=== PATIENT | female | born 1985 | race Caucasian/White ===

== ENCOUNTER 2019-05-23 17:38 | Inpatient (IN) | payer OTHER ==
[~2019-05-23] VITALS: Ht 149.9 cm; Wt 77.0 kg
[~2019-05-23 17:38] MED LIST: DICL75TA5 PO
--- NOTE | 2019-05-23 18:00 | NUR ---
Patient in room MED 313. I have received report from YORDAN MONREAL and had the opportunity to ask questions and assume patient care.
[2019-05-23 18:29] LABS: D-DIMER 0.31 MG/L FEU (0-0.50)
[2019-05-23 18:40] LABS: MAGNESIUM 1.8 MG/DL (1.5-2.4)
[2019-05-23] MEDS ORDERED: LISI10TA4 PO (18:53)
[2019-05-23] MEDS ORDERED: lisinopril 10 MG tablet PO ONE (19:20)
[2019-05-23] MEDS ORDERED: heparin 10,000 units/1 ML INJ IV ONE (19:20)
[2019-05-23] MEDS ORDERED: zolpidem 5mg tablet PO PRN (19:20)
[2019-05-23] MEDS ORDERED: LORazepam 1 MG tablet PO PRN (19:20)
--- NOTE | 2019-05-23 19:27 | NUR ---
[facility]ARA CLINICAL DATA RESEARCH AT BEDSIDE. VERBAL ORDER MEDICATIONS, REFER TO ORDERS
[2019-05-23] MEDS: heparin 25,000 UNIT/250ml bag 250 ML IV SCH (19:38)
[2019-05-23 19:39] LABS: BASOPHILS # (AUTO) 0.1 X10'3 (0-0.2); BASOPHILS % (AUTO) 1.1 % (0-1); EOSINOPHILS # (AUTO) 0.3 X10'3 (0-0.9); EOSINOPHILS % (AUTO) 2.8 % (0-6); HEMATOCRIT 52.8 % (35.0-45.0); LYMPHOCYTES # (AUTO) 3.4 X10'3 (1.1-4.8); LYMPHOCYTES % (AUTO) 33.2 % (21-51); MEAN CORPUSCULAR HEMOGLOBIN 33.9 PG (27.0-31.0); MEAN CORPUSCULAR HGB CONC 34.4 g/dL (33.0-36.5); MEAN CORPUSCULAR VOLUME 98.6 FL (78-98); MEAN PLATELET VOLUME 8.5 FL (7.4-10.4); MONOCYTES # (AUTO) 0.9 X10'3 (0-0.9); MONOCYTES % (AUTO) 9.1 % (2-12); NEUTROPHILS # (AUTO) 5.5 X10'3 (1.8-7.7); NEUTROPHILS % (AUTO) 53.8 % (42-75); PLATELET COUNT 269 X10'3 (140-440); RED BLOOD COUNT 5.35 X10'6 (4.20-5.60); RED CELL DISTRIBUTION WIDTH 14.5 % (11.5-14.5); WHITE BLOOD COUNT 10.3 X10'3 (4.5-11.0)
[2019-05-23 19:43] LABS: HEMOGLOBIN 18.2 g/dl (12.0-16.0)
[2019-05-23] MEDS ORDERED: acetaminophen 325mg tablet PO PRN (19:45)
[2019-05-23] MEDS ORDERED: ondansetron/PF 4mg/2ml inj IV PRN (19:45)
[2019-05-23] MEDS ORDERED: morphine 2 MG/ML inj. syringe IV PRN ×2 (19:45)
[2019-05-23] MEDS ORDERED: mag hydrox/Alum hydrox/simeth 30ml oral suspension PO PRN (19:45)
[2019-05-23] MEDS ORDERED: magnesium hydroxide 30ml (MOM) UD suspension PO PRN (19:45)
--- NOTE | 2019-05-23 19:48 | NUR ---
TAMARA BERNARD STATED PT CAN EAT UNTIL MIDNIGHT, NPO AFTER EXCEPT MEDICATIONS. GAVE PT APPLESAUCE AND ORANGE JUICE REQUESTED
[2019-05-23 19:50] LABS: PARTIAL THROMBOPLASTIN TIME 31 SECONDS (22-32)
[2019-05-23] MEDS ORDERED: nicotine 14mg patch - 24hr TD ONE (20:05)
[2019-05-23 20:14] LABS: HEMOGLOBIN A1C 5.1 % (4.5-6.2)
--- NOTE | 2019-05-23 20:15 | NUR ---
TAMARA BERNARD CALLED FOR VERBAL ORDERS OF STAT ECHO, ABG ON RA, AND SERUM ERYTHOPEOTIN
--- NOTE | 2019-05-23 21:30 | NUR ---
RECEIVED PT, PT STABLE A & O X4
[2019-05-23 21:41] VITALS: BP 152/103
[2019-05-23 22:00] VITALS: BP 139/83
[2019-05-23] MEDS ORDERED: metoprolol succinate 25mg (24-HOUR) SR. Tablet PO ONE (22:10)
--- NOTE | 2019-05-23 22:39 | NUR ---
Per Dr. Simons, cancel all future troponins, new medication ordered, NPO after midnight except for meds. Prepare to go to lab head tomorrow.
[2019-05-23 23:27] LABS: URINE AMPHETAMINE SCREEN NEGATIVE (Neg); URINE BARBITUATE SCREEN NEGATIVE (Neg); URINE BENZODIAZEPINES SCREEN NEGATIVE (Neg); URINE CANNABINOID SCREEN NEGATIVE (Neg); URINE COCAINE SCREEN NEGATIVE (Neg); URINE METHADONE SCREEN NEGATIVE (Neg); URINE OPIATE SCREEN POSITIVE (Neg); URINE PHENCYCLIDINE SCREEN NEGATIVE (Neg)
[2019-05-23] MEDS: normal saline 1000ml 1,000 ML IV SCH (23:37)
[2019-05-24] VITALS (13 sets, daily range): BP systolic 118–139; BP diastolic 71–91
[2019-05-24 02:54] LABS: BASOPHILS # (AUTO) 0.2 X10'3 (0-0.2); BASOPHILS % (AUTO) 1.7 % (0-1); EOSINOPHILS # (AUTO) 0.4 X10'3 (0-0.9); EOSINOPHILS % (AUTO) 4.1 % (0-6); HEMATOCRIT 49.1 % (35.0-45.0); HEMOGLOBIN 16.6 g/dl (12.0-16.0); LYMPHOCYTES # (AUTO) 3.7 X10'3 (1.1-4.8); LYMPHOCYTES % (AUTO) 38.6 % (21-51); MEAN CORPUSCULAR HEMOGLOBIN 33.9 PG (27.0-31.0); MEAN CORPUSCULAR HGB CONC 33.9 g/dL (33.0-36.5); MEAN CORPUSCULAR VOLUME 99.8 FL (78-98); MEAN PLATELET VOLUME 8.1 FL (7.4-10.4); MONOCYTES % (AUTO) 10.3 % (2-12); NEUTROPHILS # (AUTO) 4.4 X10'3 (1.8-7.7); NEUTROPHILS % (AUTO) 45.3 % (42-75); PLATELET COUNT 244 X10'3 (140-440); RED BLOOD COUNT 4.92 X10'6 (4.20-5.60); RED CELL DISTRIBUTION WIDTH 14.7 % (11.5-14.5); WHITE BLOOD COUNT 9.7 X10'3 (4.5-11.0)
[2019-05-24 03:02] LABS: ANION GAP 7 (8-16); BLOOD UREA NITROGEN 12 MG/DL (7-18); BUN/CREATININE RATIO 14.5 (6.6-38.0); CALCIUM 8.1 MG/DL (8.5-10.1); CHLORIDE 103 MMOL/L (99-107); CHOL/HDL RATIO 5.9 (0.00-4.99); CHOLESTEROL 166 MG/DL (0-200); CREATININE 0.83 MG/DL (0.40-0.90); GLUCOSE 108 MG/DL (70-104); HDL CHOLESTEROL 28 MG/DL (35-60); LDL CHOLESTEROL 116 MG/DL (50-100); POTASSIUM 3.4 MMOL/L (3.5-5.1); SODIUM 138 MMOL/L (135-145); TOTAL CARBON DIOXIDE 28.2 MMOL/L (24-32); TRIGLYCERIDES 362 MG/DL (20-135); eGFR 78 ML/MIN
--- NOTE | 2019-05-24 04:08 | NUR ---
PAGE TO RESPIRATORY: 313 PT ABY ACTIVE ORDER FOR ABGS, EXPECTED DONE IN ER AND WANTS DONE BEFORE CATH PROCEDURE. THANK YOU.
[2019-05-24] MEDS: heparin 10,000 units/1 ML INJ IV PRN ×2 (04:09→12:40)
[2019-05-24] MEDS: heparin 25,000 UNIT/250ml bag 250 ML IV SCH ×2 (04:11→12:42)
[2019-05-24 04:56] LABS: ABG BASE EXCESS -0.2 mmol/L (-2.0-3.0); ABG HCO3 25.2 mmol/L (22.0-26.0); ABG OXYGEN SATURATION 95.5 % (95-98); ABG PCO2 (T) 43.3 mmHg (35.0-45.0); ABG PH (T) 7.382 (7.350-7.450); ABG PO2 (T) 78.8 mmHg (83-108); FCOHb 0.6 % (0.5-1.5); FMetHb 0.3 % (0.3-1.12); FO2Hb 94.6 % (94-100); TOTAL HEMOGLOBIN 17.2 G/dl (12.0-16.0)
--- NOTE | 2019-05-24 06:00 | NUR ---
Problems reprioritized. Patient report given, questions answered & plan of care reviewed with Bing MONREAL.
--- NOTE | 2019-05-24 07:05 | NUR ---
Patient in room MED 313. I have received report from Sandra MONREAL and had the opportunity to ask questions and assume patient care.
[2019-05-24] MEDS ORDERED: metoprolol succinate 25mg (24-HOUR) SR. Tablet PO SCH (08:00)
[2019-05-24] MEDS: aspirin 81mg tablet.DR PO SCH (08:00)
[2019-05-24] MEDS: atorvastatin 20mg tablet PO SCH (09:22)
[2019-05-24] MEDS: lisinopril 20mg tablet PO SCH (09:25)
[2019-05-24] MEDS ORDERED: diphenhydrAMINE 25mg capsule PO ONE ×2 (10:00→10:05)
--- NOTE | 2019-05-24 11:10 | NUR ---
Patient in room MED 313. I have received report from JOCELIN Smart and had the opportunity to ask questions and assume patient care.
--- NOTE | 2019-05-24 11:23 | NUR ---
PICC NURSE PAGED FOR EXT PIV
--- NOTE | 2019-05-24 11:26 | NUR ---
page to [facility] nurse: RM 313 needs to be darted. Thank you! Ashley MONREAL [phone]
[2019-05-24] MEDS: normal saline 1000ml 1,000 ML IV SCH (11:30)
[2019-05-24] MEDS ORDERED: LIDOcaine 1% (10mg/ml)w/preservative injection 20ml MDV ONE (13:27)
[2019-05-24] MEDS ORDERED: midazolam 2 mg/2 ml injection ONE ×2 (13:27→14:09)
[2019-05-24] MEDS ORDERED: fentaNYL/PF 50MCG/1 ML 2ML syringe ONE (13:27)
[2019-05-24] MEDS ORDERED: iohexol 350MG/ML 100ml bottle IV ONE (13:28)
[2019-05-24] MEDS ORDERED: heparin 1,000 UNITS/NS 500ml 500 ML ONE (13:28)
[2019-05-24] MEDS ORDERED: iohexol 350 MG/ML 50ML vial IV ONE (13:28)
[2019-05-24] MEDS ORDERED: metoprolol tartrate 1mg/ml inj IV ONE (14:16)
[2019-05-24] MEDS ORDERED: nitroGLYCERIN-Tridil 50MG/D5W 250 ML IV ONE (14:17)
--- NOTE | 2019-05-24 14:45 | NUR ---
Patient back from [employer]. Right groin site clean dry dressing intact. No s/sx of bleeding or hematoma.
[2019-05-24] MEDS ORDERED: ondansetron/PF 4mg/2ml inj IV PRN (15:00)
[2019-05-24] MEDS ORDERED: HYDROcodone/acetaminophen 5mg/325mg tablet PO PRN (15:00)
[2019-05-24] MEDS ORDERED: OXAZEpam 15mg capsule PO PRN (15:05)
[2019-05-24] MEDS ORDERED: proCHLORperazine 10 MG/2 ml inj IV PRN (15:05)
[2019-05-24] MEDS ORDERED: normal saline 1000ml 1,000 ML IV SCH (15:25)
[2019-05-24] MEDS: HYDROcodone/acetaminophen 10/325mg tab PO PRN (15:54)
--- NOTE | 2019-05-24 17:22 | NUR ---
PAGER ID: [phone] MESSAGE: 313: ABY - need to clarify phlebotomy therapeutic order.
--- NOTE | 2019-05-24 18:00 | NUR ---
Patient in room MED 313. I have received report from Rayne MONREAL and had the opportunity to ask questions and assume patient care.
--- NOTE | 2019-05-24 18:13 | NUR ---
Problems reprioritized. Patient report given, questions answered & plan of care reviewed with JOCELIN Flores.
--- NOTE | 2019-05-24 18:41 | NUR ---
I have reviewed and agree with all interventions, assessments performed and documented by JOCELIN Mclain.
[2019-05-24] MEDS: ALPRAZolam 0.5mg tablet PO SCH (20:35)
[2019-05-24] MEDS: metoprolol succinate 25mg (24-HOUR) SR. Tablet PO SCH (20:35)
--- NOTE | 2019-05-24 23:38 | NUR ---
I have drawn 192 mls of blood off pt, the iv stopped drawing so will give it a rest and try to get the remaining 108 mls later.
[2019-05-25 02:00] VITALS: BP 117/76
[2019-05-25 05:28] LABS: BASOPHILS # (AUTO) 0.1 X10'3 (0-0.2); BASOPHILS % (AUTO) 1.3 % (0-1); EOSINOPHILS # (AUTO) 0.4 X10'3 (0-0.9); EOSINOPHILS % (AUTO) 4.9 % (0-6); HEMATOCRIT 44.8 % (35.0-45.0); HEMOGLOBIN 15.4 g/dl (12.0-16.0); LYMPHOCYTES # (AUTO) 2.7 X10'3 (1.1-4.8); LYMPHOCYTES % (AUTO) 35.9 % (21-51); MEAN CORPUSCULAR HEMOGLOBIN 34.1 PG (27.0-31.0); MEAN CORPUSCULAR HGB CONC 34.4 g/dL (33.0-36.5); MEAN CORPUSCULAR VOLUME 98.9 FL (78-98); MEAN PLATELET VOLUME 8.3 FL (7.4-10.4); MONOCYTES # (AUTO) 0.9 X10'3 (0-0.9); MONOCYTES % (AUTO) 11.5 % (2-12); NEUTROPHILS # (AUTO) 3.5 X10'3 (1.8-7.7); NEUTROPHILS % (AUTO) 46.4 % (42-75); PLATELET COUNT 224 X10'3 (140-440); RED BLOOD COUNT 4.53 X10'6 (4.20-5.60); RED CELL DISTRIBUTION WIDTH 13.8 % (11.5-14.5); WHITE BLOOD COUNT 7.5 X10'3 (4.5-11.0)
[2019-05-25 05:57] LABS: ANION GAP 8 (8-16); BLOOD UREA NITROGEN 12 MG/DL (7-18); BUN/CREATININE RATIO 19.4 (6.6-38.0); CALCIUM 8.3 MG/DL (8.5-10.1); CHLORIDE 109 MMOL/L (99-107); CREATININE 0.62 MG/DL (0.40-0.90); GLUCOSE 96 MG/DL (70-104); POTASSIUM 4.1 MMOL/L (3.5-5.1); SODIUM 143 MMOL/L (135-145); TOTAL CARBON DIOXIDE 26.1 MMOL/L (24-32); eGFR > 90 ML/MIN
--- NOTE | 2019-05-25 06:00 | NUR ---
Problems reprioritized. Patient report given, questions answered & plan of care reviewed with JASMINE MONREAL.
--- NOTE | 2019-05-25 06:00 | NUR ---
Patient in room MED 313. I have received report from Sandra MONREAL and had the opportunity to ask questions and assume patient care.
[2019-05-25 07:00] VITALS: BP 145/83
[2019-05-25] MEDS: HYDROcodone/acetaminophen 10/325mg tab PO PRN ×2 (08:32→12:47)
[2019-05-25] MEDS: ALPRAZolam 0.5mg tablet PO SCH (08:32)
[2019-05-25] MEDS: lisinopril 20mg tablet PO SCH (08:33)
[2019-05-25] MEDS: metoprolol succinate 25mg (24-HOUR) SR. Tablet PO SCH (08:33)
[2019-05-25] MEDS: aspirin 81mg tablet.DR PO SCH (08:33)
[2019-05-25] MEDS: atorvastatin 20mg tablet PO SCH (08:34)
[2019-05-25 11:00] VITALS: BP 146/99
[2019-05-25] MEDS ORDERED: METO-395 PO (11:24)
[2019-05-25] MEDS ORDERED: ASPI-1071 PO (11:24)
[2019-05-25] MEDS ORDERED: NICO-631 TD (11:24)
[2019-05-25] MEDS ORDERED: ATOR20TA66 PO (11:24)
--- NOTE | 2019-05-25 12:30 | NUR ---
The patient has remained stable VSS and she denies any pain. IV removed from R arm with cath intact, pt tolerated well. IV removed from L arm cath intact and pt tolerated well. She stated understanding to all discharge instructions. Medications faxed to her pharmacy. She was escorted via wheelchair to private vehicle without event.
== END 2019-05-25 12:30 | disposition home or self-care (01) | DRG 282 ==
LOC: EDSEX 17:39 → ER 17:39 → EEVIPCON 17:39 → MED 3N 19:45
PROVIDERS: ADMIT Hospitalist; ATTEND Hospitalist
PROC: 4A023N7 Measurement of Cardiac Sampling and Pressure, Left Heart, Percutaneous Approach (ICD-10-PCS; principal; 2019-05-24)
PROC: B2111ZZ Fluoroscopy of Multiple Coronary Arteries using Low Osmolar Contrast (ICD-10-PCS; 2019-05-24)
PROC: B2151ZZ Fluoroscopy of Left Heart using Low Osmolar Contrast (ICD-10-PCS; 2019-05-24)
PROC: B41F1ZZ Fluoroscopy of Right Lower Extremity Arteries using Low Osmolar Contrast (ICD-10-PCS; 2019-05-24)
DX: I21.4 Non-ST elevation (NSTEMI) myocardial infarction (principal); D75.1 Secondary polycythemia; E78.00 Pure hypercholesterolemia, unspecified; E78.5 Hyperlipidemia, unspecified; F17.210 Nicotine dependence, cigarettes, uncomplicated; I10 Essential (primary) hypertension; F41.9 Anxiety disorder, unspecified; G43.909 Migraine, unspecified, not intractable, without status migrainosus; M79.601 Pain in right arm; M79.602 Pain in left arm; R11.2 Nausea with vomiting, unspecified; R42 Dizziness and giddiness; Z82.49 Family history of ischemic heart disease and other diseases of the circulatory system; Z71.6 Tobacco abuse counseling
CPT/HCPCS: 36415; 36600; 76937; 80048; 80061; 80305; 82668; 82803; 83036; 83735; 83880; 84484; 85018; 85025; 85379; 85610; 85730; 87081; 93005; 93306; 93458; 96374; 99152; 99153; 99285; A4620; A6258; C1769; G0378; J1644; J2001; J2250; J2270; J3010; J3490; J7030; Q0163; Q9967

== ENCOUNTER 2019-08-16 13:43 | Outpatient (CLI) | payer OTHER, MEDICAID ==
[~2019-08-16 13:43] MED LIST changes: +ASPI-1071 PO; +ATOR20TA66 PO; -DICL75TA5 PO; +LISI10TA4 PO; +METO-395 PO
[2019-08-16 14:43] LABS: BASOPHILS # (AUTO) 0.1 X10'3 (0-0.2); BASOPHILS % (AUTO) 1.5 % (0-1); EOSINOPHILS # (AUTO) 0.6 X10'3 (0-0.9); EOSINOPHILS % (AUTO) 5.7 % (0-6); HEMATOCRIT 43.8 % (35.0-45.0); HEMOGLOBIN 15.3 g/dl (12.0-16.0); LYMPHOCYTES # (AUTO) 2.6 X10'3 (1.1-4.8); LYMPHOCYTES % (AUTO) 26.7 % (21-51); MEAN CORPUSCULAR HEMOGLOBIN 33.9 PG (27.0-31.0); MEAN CORPUSCULAR VOLUME 96.9 FL (78-98); MEAN PLATELET VOLUME 7.4 FL (7.4-10.4); MONOCYTES # (AUTO) 0.8 X10'3 (0-0.9); MONOCYTES % (AUTO) 7.8 % (2-12); NEUTROPHILS # (AUTO) 5.8 X10'3 (1.8-7.7); NEUTROPHILS % (AUTO) 58.3 % (42-75); PLATELET COUNT 320 X10'3 (140-440); RED BLOOD COUNT 4.53 X10'6 (4.20-5.60); RED CELL DISTRIBUTION WIDTH 11.8 % (11.5-14.5); WHITE BLOOD COUNT 9.9 X10'3 (4.5-11.0)
[2019-08-16 14:55] LABS: ALANINE AMINOTRANSFERASE 54 U/L (12-78); ALBUMIN 3.8 G/DL (3.4-5.0); ALBUMIN/GLOBULIN RATIO 1.1 (1.1-1.5); ALKALINE PHOSPHATASE 84 IU/L (46-116); ANION GAP 8 (8-16); ASPARTATE AMINO TRANSFERASE 30 U/L (10-37); BILIRUBIN,TOTAL 0.7 MG/DL (0.1-1.0); BLOOD UREA NITROGEN 7 MG/DL (7-18); BUN/CREATININE RATIO 11.5 (6.6-38.0); CHLORIDE 104 MMOL/L (99-107); CREATININE 0.61 MG/DL (0.40-0.90); GLUCOSE 96 MG/DL (70-104); LACTATE DEHYDROGENASE 137 U/L (81-234); POTASSIUM 3.7 MMOL/L (3.5-5.1); SODIUM 139 MMOL/L (135-145); TOTAL CARBON DIOXIDE 27.5 MMOL/L (24-32); TOTAL PROTEIN 7.2 G/DL (6.4-8.2); eGFR > 90 ML/MIN
== END 2019-08-16 23:59 | disposition home or self-care (01) ==
LOC: LAB 13:43
PROVIDERS: ATTEND Internal Medicine Hematology & Oncology
DX: D75.1 Secondary polycythemia (principal)
CPT/HCPCS: 36415; 80053; 83010; 83615; 85025; 85651

== ENCOUNTER 2019-08-30 22:52 | Emergency (ER) | payer MEDICAID, OTHER ==
[~2019-08-30] VITALS: Ht 149.9 cm; Wt 86.4 kg
[2019-08-30] MEDS ORDERED: DULO-31 PO (23:06)
[2019-08-30] MEDS ORDERED: LOSA25TA96 PO (23:06)
[2019-08-30] MEDS ORDERED: HYDR12.55 PO (23:06)
[2019-08-31 00:58] VITALS: BP 142/97
== END 2019-08-31 00:59 | disposition home or self-care (01) ==
LOC: ER 22:52
DX: I10 Essential (primary) hypertension (principal); E78.00 Pure hypercholesterolemia, unspecified; Z87.891 Personal history of nicotine dependence; Z88.8 Allergy status to other drugs, medicaments and biological substances; Z79.82 Long term (current) use of aspirin; Z79.899 Other long term (current) drug therapy
CPT/HCPCS: 99281

== ENCOUNTER 2019-09-06 08:23 | Outpatient (CLI) | payer OTHER ==
[~2019-09-06 08:23] MED LIST changes: +DULO-31 PO; +HYDR12.55 PO; -LISI10TA4 PO; +LOSA25TA96 PO
== END 2019-09-06 23:59 | disposition home or self-care (01) ==
LOC: RAD 08:23
PROVIDERS: ATTEND Family Medicine
DX: I10 Essential (primary) hypertension (principal)
CPT/HCPCS: 93975

== ENCOUNTER 2019-09-06 08:57 | Outpatient (CLI) | payer OTHER | END 2019-09-06 23:59 | disposition home or self-care (01) | LOC: RAD 08:57 | PROVIDERS: ATTEND Internal Medicine Hematology & Oncology | DX: D75.1 Secondary polycythemia (principal) | CPT/HCPCS: 76700 ==

== ENCOUNTER 2019-11-18 12:47 | Outpatient (CLI) | payer OTHER ==
[2019-11-18 13:18] LABS: BASOPHILS # (AUTO) 0.1 X10'3 (0-0.2); BASOPHILS % (AUTO) 1.2 % (0-1); EOSINOPHILS # (AUTO) 0.3 X10'3 (0-0.9); EOSINOPHILS % (AUTO) 2.7 % (0-6); HEMOGLOBIN 15.9 g/dl (12.0-16.0); LYMPHOCYTES # (AUTO) 2.5 X10'3 (1.1-4.8); LYMPHOCYTES % (AUTO) 23.3 % (21-51); MEAN CORPUSCULAR HEMOGLOBIN 32.9 PG (27.0-31.0); MEAN CORPUSCULAR HGB CONC 33.9 g/dL (33.0-36.5); MEAN PLATELET VOLUME 7.7 FL (7.4-10.4); MONOCYTES % (AUTO) 9.2 % (2-12); NEUTROPHILS # (AUTO) 6.8 X10'3 (1.8-7.7); NEUTROPHILS % (AUTO) 63.6 % (42-75); PLATELET COUNT 389 X10'3 (140-440); RED BLOOD COUNT 4.84 X10'6 (4.20-5.60); RED CELL DISTRIBUTION WIDTH 12.5 % (11.5-14.5); WHITE BLOOD COUNT 10.8 X10'3 (4.5-11.0)
== END 2019-11-18 23:59 | disposition home or self-care (01) ==
LOC: LAB 12:47
PROVIDERS: ATTEND Family Medicine
DX: D75.1 Secondary polycythemia (principal)
CPT/HCPCS: 36415; 85025

== ENCOUNTER 2020-02-11 11:26 | Emergency (ER) | payer BC, MEDICAID ==
[~2020-02-11] VITALS: Ht 149.9 cm; Wt 89.5 kg
[2020-02-11 11:34] VITALS: BP 148/102
[2020-02-11] MEDS ORDERED: orphenadrine citrate 60mg/2ml inj. IM ONE (12:15)
[2020-02-11] MEDS ORDERED: ketorolac tromethamine 15mg/ml inj. IM ONE (12:15)
[2020-02-11] MEDS ORDERED: IBUP-1984 PO (12:57)
[2020-02-11] MEDS ORDERED: ORPH100T2 PO (12:57)
== END 2020-02-11 13:37 | disposition home or self-care (01) ==
LOC: ER 11:26
DX: M54.5 Low back pain (principal); M54.6 Pain in thoracic spine; M54.2 Cervicalgia; E78.00 Pure hypercholesterolemia, unspecified; I10 Essential (primary) hypertension; Z72.89 Other problems related to lifestyle; Z88.8 Allergy status to other drugs, medicaments and biological substances; Z79.82 Long term (current) use of aspirin; Z79.899 Other long term (current) drug therapy; W01.0XXA Fall on same level from slipping, tripping and stumbling without subsequent striking against object, initial encounter; Y93.89 Activity, other specified; Y92.89 Other specified places as the place of occurrence of the external cause; Y99.8 Other external cause status
CPT/HCPCS: 72074; 72100; 96372; 99284; J1885; J2360

== ENCOUNTER 2020-05-05 16:56 | Emergency (ER) | payer BC, MEDICAID ==
[~2020-05-05] VITALS: Ht 149.9 cm; Wt 90.4 kg
[~2020-05-05 16:56] MED LIST changes: +ORPH100T2 PO
[2020-05-05 17:30] LABS: BASOPHILS # (AUTO) 0.1 X10'3 (0-0.2); BASOPHILS % (AUTO) 1.3 % (0-1); EOSINOPHILS # (AUTO) 0.5 X10'3 (0-0.9); EOSINOPHILS % (AUTO) 4.3 % (0-6); HEMATOCRIT 45.3 % (35.0-45.0); HEMOGLOBIN 15.6 g/dl (12.0-16.0); LYMPHOCYTES # (AUTO) 3.2 X10'3 (1.1-4.8); LYMPHOCYTES % (AUTO) 29.1 % (21-51); MEAN CORPUSCULAR HEMOGLOBIN 33.8 PG (27.0-31.0); MEAN CORPUSCULAR HGB CONC 34.3 g/dL (33.0-36.5); MEAN CORPUSCULAR VOLUME 98.4 FL (78-98); MEAN PLATELET VOLUME 7.5 FL (7.4-10.4); MONOCYTES # (AUTO) 0.7 X10'3 (0-0.9); MONOCYTES % (AUTO) 6.7 % (2-12); NEUTROPHILS # (AUTO) 6.4 X10'3 (1.8-7.7); NEUTROPHILS % (AUTO) 58.6 % (42-75); PLATELET COUNT 374 X10'3 (140-440); RED CELL DISTRIBUTION WIDTH 12.1 % (11.5-14.5); WHITE BLOOD COUNT 10.9 X10'3 (4.5-11.0)
[2020-05-05 17:44] LABS: ALANINE AMINOTRANSFERASE 160 U/L (12-78); ALBUMIN 3.7 G/DL (3.4-5.0); ASPARTATE AMINO TRANSFERASE 137 U/L (10-37); BLOOD UREA NITROGEN 8 MG/DL (7-18); BUN/CREATININE RATIO 12.5 (6.6-38.0); CALCIUM 9.1 MG/DL (8.5-10.1); CREATININE 0.64 MG/DL (0.40-0.90); GLUCOSE 124 MG/DL (70-104); LIPASE 55 U/L (73-393); TOTAL CARBON DIOXIDE 28.2 MMOL/L (24-32); eGFR > 90 ML/MIN
[2020-05-05 17:46] LABS: URINE HCG NEGATIVE (NEG)
[2020-05-05 17:49] LABS: CLARITY,URINE CLOUDY (Clear); COLOR,URINE YELLOW (Yellow); GLUCOSE, URINE NEGATIVE (Neg); KETONES,URINE NEGATIVE (Neg); LEUKOCYTE ESTERASE ,URINE LARGE (Neg); NITRITES, URINE NEGATIVE (Neg); OCCULT BLOOD,URINE SMALL (Neg); PROTEIN,URINE NEGATIVE (Neg); UROBILINOGEN,URINE 0.2 E.U/dL (0.2-1.0)
[2020-05-05 17:51] LABS: UA COLLECTION TYPE CLN CATCH MIDSTREAM
[2020-05-05 17:57] LABS: ALBUMIN/GLOBULIN RATIO 0.9 (1.1-1.5); ALKALINE PHOSPHATASE 84 IU/L (46-116); ANION GAP 11 (8-16); BILIRUBIN,TOTAL 0.6 MG/DL (0.1-1.0); CHLORIDE 99 MMOL/L (99-107); POTASSIUM 3.3 MMOL/L (3.5-5.1); SODIUM 138 MMOL/L (135-145); TOTAL PROTEIN 7.7 G/DL (6.4-8.2)
[2020-05-05] MEDS ORDERED: normal saline 1000ML IV soln IVB ONE (18:00)
[2020-05-05] MEDS ORDERED: ondansetron/PF 4mg/2ml inj IV ONE (18:00)
[2020-05-05 18:09] LABS: MUCUS STRANDS FEW /LPF (Neg); SQUAMOUS EPITHELIAL CELL,UR MANY /LPF (FEW)
[2020-05-05 18:10] LABS: BACTERIA,URINE 4+ /HPF (Neg); RBC,URINE 0-2 /HPF (0-2); WBC,URINE TNTC /HPF (0-4)
[2020-05-05] MEDS ORDERED: ketorolac trometh. 30mg/ml inj. IV ONE (18:25)
[2020-05-05] MEDS ORDERED: morphine 10mg/ml inj. IV ONE (18:25)
[2020-05-05] MEDS ORDERED: CefTRIAXone/D5W-Rocephin 1gm 50 ML IV ONE (18:55)
--- NOTE | 2020-05-05 19:06 | NUR ---
pt unable to provide a urine sample at this time
[2020-05-05] MEDS ORDERED: CEPH-572 PO (19:37)
[2020-05-05 20:05] VITALS: BP 145/89
[2020-05-05 20:22] LABS: CLARITY,URINE CLEAR (Clear); COLOR,URINE YELLOW (Yellow); GLUCOSE, URINE NEGATIVE (Neg); KETONES,URINE TRACE mg/dl (Neg); LEUKOCYTE ESTERASE ,URINE MODERATE (Neg); NITRITES, URINE NEGATIVE (Neg); OCCULT BLOOD,URINE NEGATIVE (Neg); PH,URINE 6.5 (4.8-8.0); PROTEIN,URINE NEGATIVE (Neg); UROBILINOGEN,URINE 0.2 E.U/dL (0.2-1.0)
[2020-05-05 20:26] LABS: UA COLLECTION TYPE CLN CATCH MIDSTREAM
[2020-05-05 20:29] LABS: SQUAMOUS EPITHELIAL CELL,UR FEW /LPF (FEW)
[2020-05-05 20:30] LABS: BACTERIA,URINE 2+ /HPF (Neg); RBC,URINE 0-2 /HPF (0-2); WBC,URINE TNTC /HPF (0-4)
[2020-05-05 20:31] LABS: MUCUS STRANDS FEW /LPF (Neg); WBC CLUMPS,URINE FEW /HPF (NEGATIVE)
[2020-05-05 20:32] LABS: HYALINE CASTS 0-3 /LPF (NEGATIVE)
== END 2020-05-05 20:07 | disposition home or self-care (01) ==
LOC: ER 16:56
DX: N39.0 Urinary tract infection, site not specified (principal); D23.9 Other benign neoplasm of skin, unspecified; R10.84 Generalized abdominal pain; R11.0 Nausea; E78.00 Pure hypercholesterolemia, unspecified; I10 Essential (primary) hypertension; Z72.89 Other problems related to lifestyle; Z88.8 Allergy status to other drugs, medicaments and biological substances; Z79.82 Long term (current) use of aspirin; Z79.2 Long term (current) use of antibiotics
CPT/HCPCS: 36415; 74176; 80053; 81001; 81025; 83690; 85025; 87088; 96365; 96375; 99284; J0696; J1885; J2270; J2405; J7030

== ENCOUNTER 2020-06-10 07:02 | Outpatient (CLI) | payer BC, MEDICAID | END 2020-06-10 23:59 | disposition home or self-care (01) | LOC: RAD 07:02 | PROVIDERS: ATTEND Family Medicine | DX: N83.201 Unspecified ovarian cyst, right side (principal) | CPT/HCPCS: 76830; 76856; 93976 ==

== ENCOUNTER 2020-09-04 11:37 | Outpatient (CLI) | payer BC ==
[2020-09-04 12:20] LABS: BASOPHILS # (AUTO) 0.1 X10'3 (0-0.2); EOSINOPHILS # (AUTO) 0.3 X10'3 (0-0.9); HEMOGLOBIN 16.9 g/dl (12.0-16.0); LYMPHOCYTES # (AUTO) 2.4 X10'3 (1.1-4.8); MEAN CORPUSCULAR HEMOGLOBIN 33.8 PG (27.0-31.0); MEAN PLATELET VOLUME 7.8 FL (7.4-10.4); WHITE BLOOD COUNT 11.5 X10'3 (4.5-11.0)
[2020-09-04 12:22] LABS: BASOPHILS % (AUTO) 1.1 % (0-1); EOSINOPHILS % (AUTO) 2.7 % (0-6); HEMATOCRIT 49.7 % (35.0-45.0); LYMPHOCYTES % (AUTO) 21.1 % (21-51); MEAN CORPUSCULAR VOLUME 99.4 FL (78-98); MONOCYTES # (AUTO) 0.9 X10'3 (0-0.9); MONOCYTES % (AUTO) 7.9 % (2-12); NEUTROPHILS # (AUTO) 7.7 X10'3 (1.8-7.7); NEUTROPHILS % (AUTO) 67.2 % (42-75); PLATELET COUNT 374 X10'3 (140-440)
[2020-09-04 12:33] LABS: ALANINE AMINOTRANSFERASE 253 U/L (12-78); ALBUMIN 3.7 G/DL (3.4-5.0); ALBUMIN/GLOBULIN RATIO 0.8 (1.1-1.5); ALKALINE PHOSPHATASE 139 IU/L (46-116); ANION GAP 12 (8-16); ASPARTATE AMINO TRANSFERASE 327 U/L (10-37); BILIRUBIN,TOTAL 0.5 MG/DL (0.1-1.0); BLOOD UREA NITROGEN 7 MG/DL (7-18); BUN/CREATININE RATIO 10.1 (6.6-38.0); CALCIUM 9.4 MG/DL (8.5-10.1); CHLORIDE 97 MMOL/L (99-107); CREATININE 0.69 MG/DL (0.40-0.90); GLUCOSE 123 MG/DL (70-104); POTASSIUM 3.2 MMOL/L (3.5-5.1); SODIUM 138 MMOL/L (135-145); TOTAL CARBON DIOXIDE 29.4 MMOL/L (24-32); TOTAL PROTEIN 8.3 G/DL (6.4-8.2); eGFR > 90 ML/MIN
== END 2020-09-04 23:59 | disposition home or self-care (01) ==
LOC: LAB 11:37
PROVIDERS: ATTEND Internal Medicine Hematology & Oncology
DX: K52.9 Noninfective gastroenteritis and colitis, unspecified (principal); D78.11 Accidental puncture and laceration of the spleen during a procedure on the spleen
CPT/HCPCS: 80053; 85025

== ENCOUNTER 2020-09-21 16:42 | Emergency (ER) | payer BC ==
[~2020-09-21] VITALS: Ht 149.9 cm; Wt 88.4 kg
[2020-09-21 16:51] VITALS: BP 144/102
== END 2020-09-21 18:24 | disposition left against medical advice (07) ==
LOC: ER 16:43
DX: M79.641 Pain in right hand (principal); R25.2 Cramp and spasm; R19.7 Diarrhea, unspecified; E78.00 Pure hypercholesterolemia, unspecified; I10 Essential (primary) hypertension; Z72.89 Other problems related to lifestyle; Z88.8 Allergy status to other drugs, medicaments and biological substances; Z79.82 Long term (current) use of aspirin; Z79.899 Other long term (current) drug therapy
CPT/HCPCS: 99281

== ENCOUNTER 2020-09-24 12:19 | Outpatient (CLI) | payer BC ==
[2020-09-24 14:59] LABS: BASOPHILS % (AUTO) 0.3 % (0-1); EOSINOPHILS # (AUTO) 0.3 X10'3 (0-0.9); EOSINOPHILS % (AUTO) 2.5 % (0-6); HEMATOCRIT 47.7 % (35.0-45.0); HEMOGLOBIN 16.1 g/dl (12.0-16.0); LYMPHOCYTES # (AUTO) 3.2 X10'3 (1.1-4.8); LYMPHOCYTES % (AUTO) 27.3 % (21-51); MEAN CORPUSCULAR HEMOGLOBIN 33.2 PG (27.0-31.0); MEAN CORPUSCULAR HGB CONC 33.8 g/dL (33.0-36.5); MEAN CORPUSCULAR VOLUME 98.4 FL (78-98); MONOCYTES # (AUTO) 0.8 X10'3 (0-0.9); MONOCYTES % (AUTO) 6.9 % (2-12); NEUTROPHILS # (AUTO) 7.4 X10'3 (1.8-7.7); PLATELET COUNT 337 X10'3 (140-440); RED BLOOD COUNT 4.85 X10'6 (4.20-5.60); RED CELL DISTRIBUTION WIDTH 12.7 % (11.5-14.5); WHITE BLOOD COUNT 11.8 X10'3 (4.5-11.0)
== END 2020-09-24 23:59 | disposition home or self-care (01) ==
LOC: LAB 12:19
PROVIDERS: ATTEND Internal Medicine Hematology & Oncology
DX: K52.9 Noninfective gastroenteritis and colitis, unspecified (principal); D75.1 Secondary polycythemia
CPT/HCPCS: 36415; 82668; 83615; 84550; 85025

== ENCOUNTER 2020-09-24 12:26 | Outpatient (CLI) | payer BC ==
[2020-09-24 15:19] LABS: CLARITY,URINE CLOUDY (Clear); GLUCOSE, URINE NEGATIVE (Neg); KETONES,URINE NEGATIVE (Neg); LEUKOCYTE ESTERASE ,URINE NEGATIVE (Neg); NITRITES, URINE NEGATIVE (Neg); OCCULT BLOOD,URINE NEGATIVE (Neg); PROTEIN,URINE NEGATIVE (Neg)
[2020-09-24 15:20] LABS: HEMOGLOBIN A1C 6.6 % (4.5-6.2)
[2020-09-24 15:21] LABS: ALANINE AMINOTRANSFERASE 188 U/L (12-78); ALBUMIN 3.6 G/DL (3.4-5.0); ALBUMIN/GLOBULIN RATIO 0.8 (1.1-1.5); ALKALINE PHOSPHATASE 133 IU/L (46-116); ANION GAP 11 (8-16); ASPARTATE AMINO TRANSFERASE 279 U/L (10-37); BILIRUBIN,TOTAL 0.6 MG/DL (0.1-1.0); BLOOD UREA NITROGEN 8 MG/DL (7-18); BUN/CREATININE RATIO 12.7 (6.6-38.0); CALCIUM 9.6 MG/DL (8.5-10.1); CHLORIDE 94 MMOL/L (99-107); CHOL/HDL RATIO 4.2 (0.00-4.99); CHOLESTEROL 220 MG/DL (0-200); CREATININE 0.63 MG/DL (0.40-0.90); GLUCOSE 113 MG/DL (70-104); HDL CHOLESTEROL 53 MG/DL (35-60); LDL CHOLESTEROL 149 MG/DL (50-100); MAGNESIUM 1.6 MG/DL (1.5-2.4); PHOSPHORUS 4.1 MG/DL (2.3-4.5); POTASSIUM 3.6 MMOL/L (3.5-5.1); SODIUM 133 MMOL/L (135-145); TOTAL CARBON DIOXIDE 28.5 MMOL/L (24-32); TOTAL PROTEIN 7.9 G/DL (6.4-8.2); TRIGLYCERIDES 128 MG/DL (20-135); eGFR > 90 ML/MIN
[2020-09-24 15:22] LABS: COLOR,URINE DARK YELLOW (Yellow); UA COLLECTION TYPE CLN CATCH MIDSTREAM
[2020-09-24 15:41] LABS: MUCUS STRANDS FEW /LPF (Neg); SQUAMOUS EPITHELIAL CELL,UR MANY /LPF (FEW); TRANSITIONAL EPI CELLS,URINE FEW /HPF
[2020-09-24 15:42] LABS: BACTERIA,URINE FEW /HPF (Neg); RBC,URINE 0-2 /HPF (0-2); WBC,URINE 0-4 /HPF (0-4)
== END 2020-09-24 23:59 | disposition home or self-care (01) ==
LOC: LAB 12:26
PROVIDERS: ATTEND Nurse Practitioner Family
DX: I10 Essential (primary) hypertension (principal); R19.7 Diarrhea, unspecified
CPT/HCPCS: 36415; 80053; 80061; 81001; 82043; 82306; 82652; 83036; 83735; 84100; 84439; 84443

== ENCOUNTER 2021-02-26 13:18 | Emergency (ER) | payer BC ==
[~2021-02-26] VITALS: Ht 149.9 cm; Wt 90.9 kg
[2021-02-26 14:34] VITALS: BP 160/113
== END 2021-02-26 15:47 | disposition home or self-care (01) ==
LOC: ER 13:19
DX: B34.9 Viral infection, unspecified (principal); R05 Cough; R50.9 Fever, unspecified; E78.00 Pure hypercholesterolemia, unspecified; I10 Essential (primary) hypertension; Z72.89 Other problems related to lifestyle; Z88.8 Allergy status to other drugs, medicaments and biological substances; Z79.82 Long term (current) use of aspirin; Z79.899 Other long term (current) drug therapy
CPT/HCPCS: 99282

== ENCOUNTER 2021-03-29 04:01 | Emergency (ER) | payer BC, OTHER ==
[~2021-03-29] VITALS: Ht 149.9 cm; Wt 96.0 kg
[2021-03-29] MEDS ORDERED: ketorolac trometh. 30mg/ml inj. IM ONE (04:25)
[2021-03-29 04:44] VITALS: BP 144/92
[2021-03-29] MEDS ORDERED: MELO-102 PO (05:08)
[2021-03-29] MEDS ORDERED: CYCL-394 PO (05:08)
== END 2021-03-29 05:39 | disposition home or self-care (01) ==
LOC: ER 04:02
DX: S39.012A Strain of muscle, fascia and tendon of lower back, initial encounter (principal); E78.00 Pure hypercholesterolemia, unspecified; I10 Essential (primary) hypertension; Z88.8 Allergy status to other drugs, medicaments and biological substances; Z79.899 Other long term (current) drug therapy; W19.XXXA Unspecified fall, initial encounter; Y93.89 Activity, other specified; Y92.89 Other specified places as the place of occurrence of the external cause; Y99.8 Other external cause status
CPT/HCPCS: 96372; 99283; J1885

== ENCOUNTER → 2021-05-11 | Emergency (ER) | payer BC, OTHER ==
[~2021-05-11] VITALS: Ht 149.9 cm; Wt 90.9 kg
[~2021-05-11] MED LIST changes: +ALBU6.7H9 INH; +AZIT250T PO; +DEXA6TAB6 PO; +MELO-102 PO; +dexamethasone 4mg tablet PO ONE
[2021-05-11 11:24] VITALS: BP 151/99
--- NOTE | 2021-05-11 12:26 | NUR ---
PT SEEN AND TREATED BY . DC INSTRUCTIONS DISCUSSED AND PT VERBALIZED UNDERSTANDING, NEW MED EDUCATION PROVIDED ON NEW RX.
== END | disposition home or self-care (01) ==
LOC: ER 10:59
DX: U07.1 COVID-19 (principal); R06.00 Dyspnea, unspecified; J45.901 Unspecified asthma with (acute) exacerbation; E78.00 Pure hypercholesterolemia, unspecified; I10 Essential (primary) hypertension; Z72.89 Other problems related to lifestyle; Z79.2 Long term (current) use of antibiotics; Z79.899 Other long term (current) drug therapy; Z88.8 Allergy status to other drugs, medicaments and biological substances
CPT/HCPCS: 71045; 99283